=== PATIENT | male | born 1985 ===

== ENCOUNTER 2019-06-29 16:58 | Emergency (ER) | payer SELFPAY ==
[2019-06-29 17:42] VITALS: BP 120/86
--- NOTE | 2019-06-29 17:59 | UC ---
Respiratory Complaint HPI - HPI Summary HPI Summary: 34-year-old male presenting with intermittent productive cough since May 15, 2019. Patient states that the cough is productive of yellowish sputum. Denies shortness of breath and wheezing. Denies cold symptoms before or since the cough started. Denies current URI symptoms. Denies fever and chills. Denies body aches and headaches. Denies nausea and vomiting. Denies history of asthma and is a nonsmoker. - History of Current Complaint Chief Complaint: UCRespiratory Stated Complaint: COUGH Hx Obtained From: Patient Pain Intensity: 0 - Allergies/Home Medications Allergies/Adverse Reactions: Allergies Allergy/AdvReac Type Severity Reaction Status Date / Time No Known Allergies Allergy Verified 06/29/19 17:42 Home Medications: Home Medications NK [No Home Medications Reported] 06/29/19 [History Confirmed 06/29/19] PMH/Surg Hx/FS Hx/Imm Hx - Surgical History Surgical History: None - Social History Alcohol Use: Occasionally Substance Use Type: None Smoking Status (MU): Never Smoked Tobacco Review of Systems All Other Systems Reviewed And Are Negative: Yes Constitutional: Positive: Negative. Negative: Fever, Chills Respiratory: Positive: Cough - Productive of yellow sputum. Negative: Shortness Of Breath Cardiovascular: Positive: Negative Gastrointestinal: Positive: Negative. Negative: Vomiting, Nausea Musculoskeletal: Negative: Myalgia Neurological/Mental Status: Positive: Negative. Negative: Headache Physical Exam - Summary Physical Exam Summary: Vital Signs Reviewed: Yes A+Ox3, no distress, well-appearing Eyes: Conjunctiva Clear ENT: Hearing grossly normal, TM x 2 clear, moist, uvula midline, no exudate, no erythema Neck: Positive: Supple Respiratory: Positive: No respiratory distress, No accessory muscle use + CTA throughout no w/r Cardiovascular: RRR nl s1, s2 no m/r Musculoskeletal Exam: GUERRERO x 4 without difficulty Neurological: Positive: Alert Psychological: Positive: age appropriate behavior Skin: Positive: no rash, no ecchymosis Vital Signs: Initial Vital Signs Temp 97.7 F 06/29/19 17:40 Pulse 80 06/29/19 17:40 Resp 12 06/29/19 17:40 BP 120/86 06/29/19 17:40 Pulse Ox 99 06/29/19 17:40 Respiratory Course/Dx - Course Course Of Treatment: Discussed viral illness and acute bronchitis with patient. Instructed to continue with symptomatic treatment including rest and fluid intake. I offered patient a short course of prednisone and Tessalon Perles to help treat symptoms , but the patient declined. Instructed to follow-up with PCP or [facility] if symptoms worsen or persist longer than 2-4 weeks. Patient voiced understanding and agreed with treatment plan. - Differential Dx/Diagnosis Provider Diagnosis: Acute bronchitis Discharge ED - Sign-Out/Discharge Documenting (check all that apply): Patient Departure All imaging exams completed and their final reports reviewed: No Studies - Discharge Plan Condition: Stable Disposition: HOME Patient Education Materials: Acute Bronchitis (ED) Referrals: [facility] [Outside] - If Needed [facility] [Outside] - If Needed Additional Instructions: Your symptoms are likely caused by a virus and should resolve without treatment. Continue to get plenty of rest and increase your fluids. You may add a decongestant, such as mucinex, to help reduce mucous production. Follow up with your primary care provider or one of the referrals listed below if symptoms worsen or do not resolve 2-4 weeks. - Billing Disposition and Condition Condition: STABLE Disposition: Home
== END 2019-06-29 18:25 | disposition home or self-care (01) ==
LOC: UCEAST 16:58
DX: J20.9 Acute bronchitis, unspecified (principal)
CPT/HCPCS: 99201; G0463